=== PATIENT | male | born 1990 | race Caucasian/White ===

== ENCOUNTER 2021-09-13 21:47 | Inpatient (IN) | payer MEDICAID, OTHER ==
[~2021-09-13] VITALS: Ht 172.7 cm; Wt 63.0 kg
--- NOTE | 2021-09-13 21:49 | NUR ---
Pt bib ra from SNF for oxygen desaturation with SaO2 in the 50s. Upon arrival, the pt looked fine, alert, wide awake and speaking with the paramedics. has good color and appearance, no signs of hypoxia, no cyanosis. Pt awake and talking. Initial SaO2 was 83% with the trach cuff deflated. RT reflatted the cuff and pt was at 93%, he also adjusted the vent settings til SaO2 at 100%. Pt aaox3 and able to communate but is practically inaudible. All other vs normal
--- NOTE | 2021-09-13 21:55 | NUR ---
EDMD at bedside to assess pt. 1L NS bolus ordered with EKG and work up.
--- NOTE | 2021-09-13 22:00 | NUR ---
1L NS bolus started Addendum: 09/14/21 at 0556 by [email or web address] first bolus initiated. Addendum: 09/14/21 at 0557 by [email or web address] Via dbl lumen PICC in Lt upper arm.
[2021-09-13] MEDS ORDERED: ACET-2154 GT (22:17)
[2021-09-13] MEDS ORDERED: MAGN400O6 GT (22:17)
[2021-09-13] MEDS ORDERED: ACET-73 GT (22:17)
[2021-09-13] MEDS ORDERED: IPRA4AER IH (22:17)
[2021-09-13] MEDS ORDERED: SENN-18 GT (22:17)
[2021-09-13] MEDS ORDERED: MECL-159 GT (22:17)
[2021-09-13] MEDS ORDERED: METO-295 GT (22:17)
[2021-09-13] MEDS ORDERED: ZOLP10TA2 GT (22:17)
[2021-09-13] MEDS ORDERED: IPRA4AER INH (22:17)
[2021-09-13] MEDS ORDERED: AMIN30LI2 GT (22:17)
[2021-09-13] MEDS ORDERED: CHLO473M3 PO (22:17)
[2021-09-13] MEDS ORDERED: MULT-213 GT (22:17)
[2021-09-13] MEDS ORDERED: PANT40TA2 GT (22:17)
[2021-09-13] MEDS ORDERED: BISA10SU61 RC (22:17)
[2021-09-13] MEDS ORDERED: SIME80TA15 GT (22:17)
[2021-09-13] MEDS ORDERED: MAG30ORA GT (22:17)
[2021-09-13] MEDS ORDERED: TRAZ-257 GT (22:17)
[2021-09-13] MEDS ORDERED: FERR325T28 GT (22:17)
[2021-09-13] MEDS ORDERED: NA P133E RC (22:17)
[2021-09-13] MEDS ORDERED: NORCO GT (22:17)
[2021-09-13] MEDS ORDERED: LORA-259 GT (22:17)
[2021-09-13] MEDS ORDERED: BACL10TA GT (22:17)
[2021-09-13] MEDS ORDERED: IV NORMAL SALINE 1000 ML BAG IV ONE (22:45)
[2021-09-13 23:03] LABS: MEAN CORPUSCULAR HEMOGLOBIN 26.8 uug (23.8-33.4); MEAN CORPUSCULAR VOLUME 83.5 fL (73.0-96.2); PLATELET COUNT (AUTO) 467 K/uL (152-348)
[2021-09-13 23:24] LABS: CARBON DIOXIDE 25 mmol/L (21-32); CHLORIDE 108 mmol/L (98-107); CREATININE 0.3 mg/dL (0.6-1.3); GLUCOSE 106 mg/dL (74-106); POTASSIUM 4.4 mmol/L (3.5-5.1); UREA NITROGEN, BLOOD 9 mg/dL (7-18)
[2021-09-13 23:30] LABS: ALANINE AMINOTRANSFERASE 18 U/L (16-63); ALKALINE PHOSPHATASE 117 U/L (50-136); ASPARTATE AMINOTRANSFERASE 12 U/L (15-37); BILIRUBIN,DIRECT 0.2 mg/dL (0.0-0.2); BILIRUBIN,TOTAL 0.3 mg/dL (0.2-1.0); TOTAL PROTEIN, SERUM 6.2 g/dL (6.4-8.2)
[2021-09-13] MEDS ORDERED: IV NS 1000 ML 1,000 ML IV ONE (23:30)
[2021-09-13] MEDS ORDERED: AZITHROMYCIN IV 500 MG in IV DEXTROSE 5% 250 ML IV ONE (23:30)
[2021-09-13] MEDS ORDERED: VANCOMYCIN 1G/D5W 200 ML PIGGYBACK IV ONE (23:30)
[2021-09-13] MEDS ORDERED: PIPERACILLIN SODIUM/TAZOBACTAM 3.375 G in IV DEXTROSE 5% 50 ML IV ONE (23:30)
[2021-09-13] MEDS ORDERED: VANCOMYCIN 1000 MG VIAL ONE (23:47)
[2021-09-13] MEDS ORDERED: AZITHROMYCIN 500MG/ D5W 250ML IVPB **ER PYXIS ONLY IV ONE (23:48)
[2021-09-13] MEDS ORDERED: PIPERACILLIN/TAZOBACTAM/D5W 50 ML IV ONE (23:49)
[2021-09-13] MEDS ORDERED: MORPHINE SULFATE 4 MG/1 ML DISP.SYRIN ONE (23:59)
[2021-09-14] VITALS (20 sets, daily range): BP systolic 94–131; BP diastolic 46–77
[2021-09-14] MEDS ORDERED: MORPHINE SULFATE 4 MG/1 ML DISP.SYRIN IV ONE
[2021-09-14 01:30] LABS: ABG BASE EXCESS -2.2 mmol/L; ABG HCO3 23.3 mmol/L; ABG PCO2 43.1 mmHg (35.0-45.0); ABG PH 7.351 (7.350-7.450); ABG PO2 53.9 mmHg (75.0-100.0); ABG SITE LEFT FEMORAL; ABG TOTAL HEMOGLOBIN 8.7 G/dL (13.5-18.0); COHb 0.3 % (0.5-1.5); MetHb 0.4 % (0.0-1.5); O2Hb 84.5 % (94.0-97.0); VENT MODE VENT - A/C; VT, ABG 500 mL
[2021-09-14] MEDS ORDERED: NOREPINEPHRINE BITARTRATE 8 MG in IV NORMAL SALINE 242 ML IV PRN (01:45)
[2021-09-14 02:17] LABS: *BILIRUBIN,URIN NEGATIVE (NEGATIVE); *BLOOD, URINE 1+ (NEGATIVE); *COLOR,URINE YELLOW (YELLOW); *KETONES,URINE 2+ (NEGATIVE); *UROBILINOGEN,URINE 0.2 E.U./dl (NORMAL); LEUKOCYTE ESTERASE ,URINE 1+ (NEGATIVE); NITRITE, URINE NEGATIVE (NEGATIVE); UGLUCOSE NEGATIVE (NEGATIVE)
[2021-09-14 02:23] LABS: *CLARITY,URINE HAZY (CLEAR)
--- NOTE | 2021-09-14 02:25 | NUR ---
Just placed a call to [facility] for panel call, Radha Green alumni relations officer and will be calling back within 20 min. If no call received, will call back.
--- NOTE | 2021-09-14 02:27 | NUR ---
Radha Green just called back and is currently consulting with EDMD>
[2021-09-14 02:29] LABS: BACTERIA,URINE MANY /HPF (NONE SEEN); SQUAMOUS EPITHELIAL CELL,UR FEW /HPF (NONE SEEN); WBC,URINE 20-50 /HPF (0-3)
[2021-09-14] MEDS ORDERED: IV NS 1000 ML 1,000 ML IV ONE (02:30)
[2021-09-14] MEDS ORDERED: MORPHINE SULFATE 2 MG/1 ML DISP.SYRIN IV ONE (02:30)
[2021-09-14] MEDS ORDERED: MORPHINE SULFATE 2 MG/1 ML DISP.SYRIN ONE (02:45)
[2021-09-14] MEDS ORDERED: MAG HYDROX/AL HYDROX/SIMETH 30 ML LIQUID UDC GT PRN (03:00)
[2021-09-14] MEDS ORDERED: HYDROCORTISONE SOD SUCCINATE 100 MG/2 ML VIAL IV ONE (03:00)
[2021-09-14] MEDS ORDERED: MAGNESIUM HYDROXIDE 30 ML LIQUID UDC GT PRN (03:00)
[2021-09-14] MEDS ORDERED: ACETAMINOPHEN ES 500 MG TABLET- SA PATIENTS-PAIN ONLY GT PRN (03:00)
[2021-09-14] MEDS ORDERED: BISACODYL 10 MG SUPP.RECT RC PRN (03:00)
--- NOTE | 2021-09-14 03:00 | NUR ---
Report called to CCU CINDY Hurtado. thorough report given using SBAR method.
--- NOTE | 2021-09-14 03:05 | NUR ---
PT SEEN IN ER # 1 BY RT , PT BEING AMBU BAGGED BY RESCUE , PT WITH PORTEX TRACH , AND ALERT AND UNDERSTANDS VERBAL COMMANDS, RT PLACING PT ON TOUSSAINT VENT, WITH NO ORDERS, LACED ON A/C 20, VT 500ML, PEEP 5, FIO2 100%, THEN TELLING DR RAINEY, ORDERS AGREED, F/B WITH C/S SPUTUM CULTURE DONE, AFTER ABG, WITH LOW PO2, RT ASKING DR RAINEY, INCREASE PEEP TO 8, TO IMPROVE OXYGENATION, DOC AGREED , NEED TO WRITE ORDER , PT IS VERY ALERT ,SUCTION RNHodan FENG TALENT DEVELOPMENT ANALYST Addendum: 09/14/21 at 0313 by DRE FENG RT Amended: Links added.
--- NOTE | 2021-09-14 03:45 | NUR ---
Pt transported to CCU2 accompanied by RT on the BVM. transfered to bed and helped get pt set up.
--- NOTE | 2021-09-14 04:06 | NUR ---
PATIENT brought to ccu # 2 @ 04:04 with rt assist with luis montgomery, then placed on zoya NOBLEP Addendum: 09/14/21 at 0407 by DRE FENG RT Amended: Links added.
[2021-09-14] MEDS ORDERED: NORMAL SALINE IV PRN (04:15)
[2021-09-14] MEDS ORDERED: PHENYLEPHRINE IV PRN (04:15)
--- NOTE | 2021-09-14 04:15 | NUR ---
patient;s bilateral upper extremities contracted , lower extremities are flaccid , received belongings of cell phone and clinical pharmacologist, and patient own portable pulse oximetry
--- NOTE | 2021-09-14 04:15 | NUR ---
received report from antonette , patient is awake , oriented x 3 , vent ac 20 tv 500 p 8 , fio2 100 % , gt flushed patent ,but [place] with scant drainage , allred from long term , left picc line from long term , sinus tachy , sbp 122/ 62 , 98 rr 21,
[2021-09-14] MEDS: LORAZEPAM 1 MG TABLET GT PRN ×3 (04:33→22:18)
--- NOTE | 2021-09-14 04:59 | NUR ---
alejandro estes is here to see patient
[2021-09-14] MEDS: ENOXAPARIN SODIUM 40 MG/0.4 ML DISP.SYRIN SQ SCH (05:28)
[2021-09-14] MEDS ORDERED: PIPERACILLIN SODIUM/TAZOBACTAM 3.375 G in IV DEXTROSE 5% 50 ML IV SCH ×4 (06:00)
--- NOTE | 2021-09-14 06:00 | NUR ---
NATHALIA MORRIS TECH NOTIFIED OF DUPLEX LE ORDER TODAY
--- NOTE | 2021-09-14 06:49 | NUR ---
emergency contact brother ,devora [phone] , brother pat [phone]
--- NOTE | 2021-09-14 06:54 | NUR ---
patient is sleeping , arousable to name and touch , same vent settings , gt clamped , picc line xray done and cxr done , allred intact , contracted with abnormal flexion on bue, flaccid ascencion ble sinus tachy , 112
[2021-09-14] MEDS: PIPERACILLIN SODIUM/TAZOBACTAM 3.375 G in IV DEXTROSE 5% 100 ML IV SCH ×3 (07:50→22:04)
[2021-09-14] MEDS: SIMETHICONE 80 MG TAB.CHEW GT SCH (08:16)
[2021-09-14] MEDS: BACLOFEN 10 MG TABLET GT SCH ×3 (08:16→17:03)
[2021-09-14] MEDS: MULTIVITAMINS,THERAPEUTIC TABLET GT SCH (08:16)
[2021-09-14] MEDS: REMEDY ESSENTIAL ZINC PASTE 113 GM TOP SCH ×2 (08:16→20:30)
[2021-09-14] MEDS: PROTEIN SUPPLEMENT (PROSTAT) 30 ML LIQUID PO SCH (08:17)
[2021-09-14] MEDS: CHLORHEXIDINE GLUCONATE 15 ML MOUTHWASH MM SCH ×2 (08:30→17:03)
[2021-09-14] MEDS: PANTOPRAZOLE ORAL SUSPENSION 40 MG SUSPDR.PKT GT SCH (08:40)
[2021-09-14] MEDS ORDERED: Medication Not On Formulary EA (Amino Acids/Protein Hydrolys (Pro-Stat Liquid) 30 ML) GT SCH (09:00)
[2021-09-14] MEDS ORDERED: MECLIZINE HCL 25 MG TABLET GT SCH (09:00)
[2021-09-14] MEDS ORDERED: ACETAMINOPHEN 325 MG TABLET-SA PATIENTS-PAIN ONLY GT SCH (09:00)
[2021-09-14] MEDS ORDERED: PANTOPRAZOLE SODIUM 40 MG TABLET.DR PO SCH (09:00)
[2021-09-14] MEDS ORDERED: ACETAMINOPHEN 325 MG TABLET PO SCH (09:00)
[2021-09-14] MEDS: MORPHINE SULFATE 2 MG/1 ML DISP.SYRIN IV PRN ×2 (11:19→18:43)
[2021-09-14] MEDS: VANCOMYCIN IV 1,000 MG in IV DEXTROSE 5% 250 ML IV SCH ×2 (13:14→22:04)
[2021-09-14] MEDS ORDERED: ACET325T53 PO (14:08)
[2021-09-14] MEDS ORDERED: MECLIZINE HCL 25 MG TABLET GT PRN (14:15)
[2021-09-14] MEDS ORDERED: IPRATROPIUM BROMIDE 0.5 MG/2.5 ML NEBU NEB PRN (14:45)
[2021-09-14] MEDS ORDERED: ALBUTEROL SULFATE 2.5 MG/ 0.5 ML NEBU NEB PRN (14:45)
[2021-09-14] MEDS ORDERED: HYDR-3972 PO (14:55)
[2021-09-14] MEDS ORDERED: PROTONIX GT (15:04)
[2021-09-14] MEDS: HYDROCODONE/APAP 5-325MG TABLET GT PRN ×2 (15:53→20:55)
[2021-09-14] MEDS: FERROUS SULFATE 325 MG TABEC PO SCH (17:30)
--- NOTE | 2021-09-14 19:15 | NUR ---
received patient awake , oriented x 4 , gt clamped , for meds suprapubis catheter draining , bilateral arms contracted , bilaterallegs flaccid , midline intact , no fever , sinus tachycardia
--- NOTE | 2021-09-14 19:15 | NUR ---
abdomen distended but soft
[2021-09-14] MEDS: ACETAMINOPHEN 325 MG TABLET PO PRN (19:50)
[2021-09-14] MEDS: TRAZODONE 100 MG TABLET GT SCH (20:29)
[2021-09-14] MEDS: ZOLPIDEM 5 MG TABLET GT PRN (20:29)
[2021-09-14] MEDS: SENNOSIDES 1 TABLET GT SCH (20:33)
[2021-09-14] MEDS: ALBUTEROL SULFATE 2.5 MG/ 0.5 ML NEBU NEB SCH (20:55)
[2021-09-14] MEDS: IPRATROPIUM BROMIDE 0.5 MG/2.5 ML NEBU NEB SCH (20:55)
--- NOTE | 2021-09-14 21:00 | NUR ---
celestina is here at bedside to see patient
[2021-09-15] VITALS (24 sets, daily range): BP systolic 97–127; BP diastolic 48–73
[2021-09-15] MEDS: MORPHINE SULFATE 2 MG/1 ML DISP.SYRIN IV PRN ×4 (00:34→22:56)
[2021-09-15] MEDS: ALBUTEROL SULFATE 2.5 MG/ 0.5 ML NEBU NEB SCH ×4 (01:08→19:15)
[2021-09-15] MEDS: IPRATROPIUM BROMIDE 0.5 MG/2.5 ML NEBU NEB SCH ×4 (01:08→19:15)
--- NOTE | 2021-09-15 01:12 | NUR ---
PATIENT ON CONT TOUSSAINT VENT WITH PORTEX # [address] AND SECURED, WITH VENT SETTINGS, A/C 20 500ML, 50%,PEEP 8. PT AWAKE AND IS ALERT AND UNDERSTANDS VERBAL COMMANDS, SUCTIONED LIGHT PALE YELL TINGE SECRETIONS, GOD COUGH REFLEX, WITH NEB INLINE , CHANGE HME , ALL VENT ALARMS GOOD, NO VENT CHANGES MADE .Petrona NOBLEP Addendum: 09/15/21 at 0115 by DRE FENG RT Amended: Links added.
[2021-09-15] MEDS: HYDROCODONE/APAP 5-325MG TABLET GT PRN ×4 (02:54→20:20)
--- NOTE | 2021-09-15 04:00 | NUR ---
left midline site , the arm is starting to swell , particularly the elbow area, , no redness , no pain
[2021-09-15] MEDS: ACETAMINOPHEN 325 MG TABLET PO PRN ×3 (05:13→18:33)
[2021-09-15] MEDS: PIPERACILLIN SODIUM/TAZOBACTAM 3.375 G in IV DEXTROSE 5% 100 ML IV SCH (05:18)
[2021-09-15] MEDS: VANCOMYCIN IV 1,000 MG in IV DEXTROSE 5% 250 ML IV SCH ×2 (05:18→23:41)
[2021-09-15 05:57] LABS: MEAN CORPUSCULAR HEMOGLOBIN 26.5 uug (23.8-33.4); MEAN CORPUSCULAR VOLUME 82.7 fL (73.0-96.2); PLATELET COUNT (AUTO) 410 K/uL (152-348)
--- NOTE | 2021-09-15 06:00 | NUR ---
talked to manager technical training regarding duplex study for left arm for dvt
[2021-09-15 06:05] LABS: ALANINE AMINOTRANSFERASE 14 U/L (16-63); ALKALINE PHOSPHATASE 90 U/L (50-136); ASPARTATE AMINOTRANSFERASE 13 U/L (15-37); BILIRUBIN,TOTAL 0.5 mg/dL (0.2-1.0); CARBON DIOXIDE 22 mmol/L (21-32); CHLORIDE 104 mmol/L (98-107); CREATININE 0.4 mg/dL (0.6-1.3); GLUCOSE 95 mg/dL (74-106); MAGNESIUM 1.5 mg/dL (1.8-2.4); TOTAL PROTEIN, SERUM 5.4 g/dL (6.4-8.2); UREA NITROGEN, BLOOD 7 mg/dL (7-18)
--- NOTE | 2021-09-15 06:30 | NUR ---
awake oriented x 4 , gt clamped for meds only , with , site is cleaned and covered with dressing , redness on the site noted , , vent setting the same , suprapubic catherter intact , trach care rendered , incontinent of bowel , with soft stool , cxr and abd xr done , left midline arm is swollen , duplex study for dvt ordered , pain medications given , SR at this time at 90 , sbp 102/52 , tylenol given for low grade temp
[2021-09-15] MEDS ORDERED: POTASSIUM CHLORIDE 50 ML IV SCH (07:30)
[2021-09-15] MEDS ORDERED: POTASSIUM CHLORIDE 20 MEQ POWDER PACKET GT ONE (07:30)
[2021-09-15] MEDS ORDERED: MAGNESIUM SULFATE/D5W 100 ML IV SCH (07:30)
[2021-09-15 07:52] LABS: ABG BASE EXCESS -2.4 mmol/L; ABG HCO3 21.3 mmol/L; ABG PCO2 31.8 mmHg (35.0-45.0); ABG PH 7.443 (7.350-7.450); ABG PO2 165.8 mmHg (75.0-100.0); ABG SITE LEFT RADIAL; ABG TOTAL HEMOGLOBIN 8.2 G/dL (13.5-18.0); COHb 0.4 % (0.5-1.5); MetHb 0.4 % (0.0-1.5); O2Hb 98.2 % (94.0-97.0); VENT MODE VENT - A/C; VT, ABG 500 mL
[2021-09-15] MEDS: PANTOPRAZOLE ORAL SUSPENSION 40 MG SUSPDR.PKT GT SCH (08:26)
[2021-09-15] MEDS: BACLOFEN 10 MG TABLET GT SCH ×3 (08:27→17:07)
[2021-09-15] MEDS: REMEDY ESSENTIAL ZINC PASTE 113 GM TOP SCH ×2 (09:00→20:19)
[2021-09-15] MEDS: CHLORHEXIDINE GLUCONATE 15 ML MOUTHWASH MM SCH ×2 (09:00→17:08)
[2021-09-15] MEDS: LORAZEPAM 1 MG TABLET GT PRN ×2 (09:40→17:06)
[2021-09-15] MEDS: PROTEIN SUPPLEMENT (PROSTAT) 30 ML LIQUID PO SCH (10:38)
[2021-09-15] MEDS: MULTIVITAMINS,THERAPEUTIC TABLET GT SCH (10:43)
[2021-09-15] MEDS: ENOXAPARIN SODIUM 40 MG/0.4 ML DISP.SYRIN SQ SCH (10:46)
[2021-09-15] MEDS: FERROUS SULFATE 325 MG TABEC PO SCH ×3 (13:00→17:08)
--- NOTE | 2021-09-15 13:00 | NUR ---
WOUND CARE CONSULT: PT HAVING PROCEDURE AT THIS TIME. REVIEWED CHART, NURSING DOCUMENTATION AND PHOTOS WHICH INDICATE RT HEEL WOUND, PRESENT ON ADMISSION. DR TEAGUE NOTIFIED OF DPM CONSULT REQUEST. RECOMMENDATIONS MADE FOR SKIN PROTECTION. DISCUSSED WITH NURSING STAFF. PT IS ON FIRST STEP PARTHA COLLINS. IN AGREEMENT WITH PLAN OF CARE.
[2021-09-15] MEDS ORDERED: PIPERACILLIN SODIUM/TAZOBACTAM 4.5 G in IV DEXTROSE 5% 50 ML IV SCH (14:00)
[2021-09-15] MEDS: MAGNESIUM SULFATE/D5W 100 ML IV SCH ×3 (14:14→16:18)
[2021-09-15] MEDS: POTASSIUM CHLORIDE 50 ML IV SCH ×4 (14:15→16:19)
[2021-09-15] MEDS: JEVITY 1.2 1000 ML LIQUID GT PRN (15:26)
--- NOTE | 2021-09-15 15:35 | NUR ---
Pt received on cont kenny vent with given settigns of AC, RR 20, Vt 500, PEEP + 8, 50% Fio2. Fio2 decreased to 30% post abg results. Alarms on and audible. Trach tube in place and secured. Ventilator plugged in red outlets Will continue to monitor.
[2021-09-15] MEDS: PIPERACILLIN SODIUM/TAZOBACTAM 3.375 G in IV DEXTROSE 5% 50 ML IV SCH ×2 (15:38→20:18)
[2021-09-15] MEDS: SIMETHICONE 80 MG TAB.CHEW GT SCH (16:17)
--- NOTE | 2021-09-15 20:00 | NUR ---
Received patient AA, able to make needs known by lip talking. With trache to vent settings: AC=20, JD=378 ml, FIO2=30% and PEEP= 5 cm. O2 saturations above 94%. Requesting for L[place], c/o back and generalized pains. [id number]. Cooling measures initiated, bath given. Had a small liquid brown BM. Turned and repositioned. Largo given via patent GT. HOB elevated above 30 degrees.
[2021-09-15] MEDS: TRAZODONE 100 MG TABLET GT SCH (20:16)
[2021-09-15] MEDS: ZOLPIDEM 5 MG TABLET GT PRN (20:17)
[2021-09-15] MEDS: SENNOSIDES 1 TABLET GT SCH (21:00)
--- NOTE | 2021-09-15 21:30 | NUR ---
Complaining of abdominal discomfort. Refusing GT feedings. Abdomen distended, soft with hypoactive bowel sounds. Feedings held. No residual. Will notify .
--- NOTE | 2021-09-15 22:30 | NUR ---
Spoke to Lisa MENDIETA re: patient's nausea, abdominal distension and fever. Order received. No cultures for now as per PENOLOGY TEACHER. Addendum: 09/16/21 at 0634 by MAYCO CAMILO RN Amended: Links added.
[2021-09-15] MEDS ORDERED: ONDANSETRON 4 MG/2 ML VIAL IV PRN (22:45)
[2021-09-16] VITALS (26 sets, daily range): BP systolic 92–123; BP diastolic 44–73
[2021-09-16] MEDS: LORAZEPAM 1 MG TABLET GT PRN ×3 (00:42→23:34)
[2021-09-16] MEDS: IPRATROPIUM BROMIDE 0.5 MG/2.5 ML NEBU NEB SCH ×4 (01:02→20:02)
[2021-09-16] MEDS: ALBUTEROL SULFATE 2.5 MG/ 0.5 ML NEBU NEB SCH ×4 (01:03→20:03)
[2021-09-16] MEDS: ACETAMINOPHEN 325 MG TABLET PO PRN ×2 (01:10→06:04)
[2021-09-16] MEDS: PIPERACILLIN SODIUM/TAZOBACTAM 3.375 G in IV DEXTROSE 5% 50 ML IV SCH ×4 (03:40→20:39)
[2021-09-16] MEDS: MORPHINE SULFATE 2 MG/1 ML DISP.SYRIN IV PRN ×4 (04:18→21:38)
[2021-09-16] MEDS: IV NORMAL SALINE 250 ML IV PRN (04:24)
[2021-09-16] MEDS: HYDROCODONE/APAP 5-325MG TABLET GT PRN ×4 (05:11→23:34)
[2021-09-16 06:28] LABS: CREATININE 0.9 mg/dL (0.6-1.3); MAGNESIUM 2.8 mg/dL (1.8-2.4); PHOSPHOROUS 3.4 mg/dL (2.5-4.9); POTASSIUM 4.2 mmol/L (3.5-5.1)
[2021-09-16 06:36] LABS: HEMATOCRIT 25.6 % (36.7-47.1); MEAN CORPUSCULAR HEMOGLOBIN 26.6 uug (23.8-33.4); MEAN CORPUSCULAR VOLUME 83.3 fL (73.0-96.2); PLATELET COUNT (AUTO) 362 K/uL (152-348)
--- NOTE | 2021-09-16 06:45 | NUR ---
Had another liquid brown stools. Flexi seal inserted without difficulty. Abdomen still distended, soft. Remains on same vent settings, O2 sat above 95%. patient monitor: ST rate 120's-130's. Temp=98.1.
--- NOTE | 2021-09-16 08:29 | NUR ---
Patient seen by Dr. Rivera. plan of care discussed. KUB with gastrograftin ordered and PO meals instead of Gtube.
[2021-09-16] MEDS: PANTOPRAZOLE ORAL SUSPENSION 40 MG SUSPDR.PKT GT SCH (08:40)
[2021-09-16] MEDS: BACLOFEN 10 MG TABLET GT SCH ×3 (08:40→17:38)
[2021-09-16] MEDS: MULTIVITAMINS,THERAPEUTIC TABLET GT SCH (08:40)
[2021-09-16] MEDS: PROTEIN SUPPLEMENT (PROSTAT) 30 ML LIQUID PO SCH (08:42)
[2021-09-16] MEDS ORDERED: ACETAMINOPHEN 650 MG SUPP.RECT RC PRN (08:45)
[2021-09-16] MEDS ORDERED: DIATR MEGLU/DIATRIZOATE SODIUM 30 ML BOTTLE ONE (08:57)
[2021-09-16] MEDS: SIMETHICONE 80 MG TAB.CHEW GT SCH (09:00)
[2021-09-16] MEDS: ENOXAPARIN SODIUM 40 MG/0.4 ML DISP.SYRIN SQ SCH (09:00)
[2021-09-16] MEDS: CHLORHEXIDINE GLUCONATE 15 ML MOUTHWASH MM SCH ×2 (09:01→17:38)
[2021-09-16] MEDS: FERROUS SULFATE 325 MG TABEC PO SCH (09:01)
[2021-09-16] MEDS: REMEDY ESSENTIAL ZINC PASTE 113 GM TOP SCH ×2 (09:25→20:39)
[2021-09-16] MEDS: VANCOMYCIN IV 1,000 MG in IV DEXTROSE 5% 250 ML IV SCH ×2 (12:29→23:52)
[2021-09-16] MEDS: FERROUS SULFATE 300 MG/5 ML LIQUID UDC GT SCH ×2 (12:32→17:38)
--- NOTE | 2021-09-16 19:17 | NUR ---
Patient had oral meal today but refusing tube feeding at this time. Patient has frequently been asking for pain medication and ativan requests. patient still has diarrhea and a flexiseal with output of 100cc/ suprapubic catheter output of 800 cc.
--- NOTE | 2021-09-16 19:30 | NUR ---
Received patient awake, alert, with trache to mechanical ventilator and with Passy Vulcan valve, so able to verbalized needs. NAD noted. Quadriplegic. O2 saturations above 94% on FIO2=30%. VS stable. Abdomen soft, distended. GT patent, clamped. Suprapubic cath with good amounts of yellow urine. Assessment completed. Turned and repositioned. Addendum: 09/17/21 at 0034 by MAYCO CAMILO RN Amended: Links added. Addendum: 09/17/21 at 0038 by MAYCO CAMILO RN Amended: Links added.
[2021-09-16] MEDS: TRAZODONE 100 MG TABLET GT SCH (20:40)
--- NOTE | 2021-09-16 20:40 | NUR ---
Lachelle Leal. Meds given via GT. GT site dressing changed, redness noted, no usual drainage around site. Supra pubic catheter dressing changed as well. Site clean, dry. Patient very appreciative of care. Addendum: 09/17/21 at 0038 by MAYCO CAMILO RN Amended: Links added.
[2021-09-16] MEDS: ZOLPIDEM 5 MG TABLET GT PRN (20:41)
[2021-09-16] MEDS: SENNOSIDES 1 TABLET GT SCH (21:00)
[2021-09-17] VITALS (19 sets, daily range): BP systolic 89–150; BP diastolic 44–88
[2021-09-17] MEDS: IV NORMAL SALINE 250 ML IV PRN (00:51)
[2021-09-17] MEDS: ALBUTEROL SULFATE 2.5 MG/ 0.5 ML NEBU NEB SCH ×4 (01:04→19:33)
[2021-09-17] MEDS: IPRATROPIUM BROMIDE 0.5 MG/2.5 ML NEBU NEB SCH ×4 (01:04→19:33)
[2021-09-17] MEDS: PIPERACILLIN SODIUM/TAZOBACTAM 3.375 G in IV DEXTROSE 5% 50 ML IV SCH ×4 (02:29→20:48)
[2021-09-17 06:16] LABS: MAGNESIUM 2.5 mg/dL (1.8-2.4); PHOSPHOROUS 3.8 mg/dL (2.5-4.9)
[2021-09-17 06:39] LABS: HEMATOCRIT 22.2 % (36.7-47.1); MEAN CORPUSCULAR HEMOGLOBIN 26.6 uug (23.8-33.4); MEAN CORPUSCULAR VOLUME 82.8 fL (73.0-96.2); PLATELET COUNT (AUTO) 267 K/uL (152-348)
--- NOTE | 2021-09-17 06:50 | NUR ---
Slept well after Industry and Ativan. O2 saturations above 95%. inside tester: SB-SR.
[2021-09-17 07:26] LABS: CREATININE 1.2 mg/dL (0.6-1.3)
[2021-09-17] MEDS: FERROUS SULFATE 300 MG/5 ML LIQUID UDC GT SCH ×3 (08:41→16:24)
[2021-09-17] MEDS: PANTOPRAZOLE ORAL SUSPENSION 40 MG SUSPDR.PKT GT SCH (08:41)
[2021-09-17] MEDS: PROTEIN SUPPLEMENT (PROSTAT) 30 ML LIQUID PO SCH (08:41)
[2021-09-17] MEDS: BACLOFEN 10 MG TABLET GT SCH ×3 (08:41→16:24)
[2021-09-17] MEDS: SIMETHICONE 80 MG TAB.CHEW GT SCH (08:42)
[2021-09-17] MEDS: MULTIVITAMINS,THERAPEUTIC TABLET GT SCH (08:42)
[2021-09-17] MEDS: CHLORHEXIDINE GLUCONATE 15 ML MOUTHWASH MM SCH ×2 (08:43→16:25)
[2021-09-17] MEDS: REMEDY ESSENTIAL ZINC PASTE 113 GM TOP SCH ×2 (08:44→20:49)
[2021-09-17] MEDS: ENOXAPARIN SODIUM 40 MG/0.4 ML DISP.SYRIN SQ SCH (08:45)
[2021-09-17] MEDS: HYDROCODONE/APAP 5-325MG TABLET GT PRN ×2 (08:49→20:48)
[2021-09-17] MEDS: VANCOMYCIN IV 1,000 MG in IV DEXTROSE 5% 250 ML IV SCH (11:55)
[2021-09-17] MEDS: METOCLOPRAMIDE HCL 5 MG TABLET PO SCH ×2 (13:34→16:24)
[2021-09-17] MEDS: MORPHINE SULFATE 2 MG/1 ML DISP.SYRIN IV PRN (14:19)
--- NOTE | 2021-09-17 14:30 | NUR ---
Patient refused meal at noon and was too lethargic to eat in the am. Tube feeding started.
--- NOTE | 2021-09-17 15:55 | NUR ---
Patient transferred to telemetry unit. Report given to Gabriela. Blood Transfused without incident.
--- NOTE | 2021-09-17 16:03 | NUR ---
RECEIVED FROM CCU VIA BED IN STABLE CONDITION
--- NOTE | 2021-09-17 17:32 | NUR ---
PT BROTHER IS AT BED SIDE , TALKING TO PT, BROTHER IS SAYING PT IS CONFUSED AND NOT RECOGNIZING HIM .PT VS ARE STABLE AND MD NOTIFIED NEW ORDERS RECEIVED NOTED AND CARRIED OUT.
--- NOTE | 2021-09-17 19:30 | NUR ---
Received pt awake .. Pt in no acute distress. Iv intact. Pt on mechanical vent. Pt in sinus rhythm . Pt tolerating g tube feeding. Pt have draining allred catheter and rectal tube. Safety and comfort provided. Will continue to monitor.
[2021-09-17 19:58] LABS: *BILIRUBIN,URIN NEGATIVE (NEGATIVE); *BLOOD, URINE 3+ (NEGATIVE); *COLOR,URINE YELLOW (YELLOW); *KETONES,URINE NEGATIVE (NEGATIVE); *UROBILINOGEN,URINE 0.2 E.U./dl (NORMAL); LEUKOCYTE ESTERASE ,URINE 2+ (NEGATIVE); NITRITE, URINE NEGATIVE (NEGATIVE); UGLUCOSE NEGATIVE (NEGATIVE)
[2021-09-17 19:59] LABS: *CLARITY,URINE HAZY (CLEAR)
[2021-09-17 20:09] LABS: BACTERIA,URINE NONE SEEN /HPF (NONE SEEN); RBC,URINE TNTC /HPF (0-3); SQUAMOUS EPITHELIAL CELL,UR FEW /HPF (NONE SEEN)
[2021-09-17 20:14] LABS: *CREATININE,URINE < 13.0 mg/dL (30-125); *URINE TOTAL PROTEIN RANDOM 14.8 mg/dL (<150/24HR)
[2021-09-17 20:35] LABS: YEAST,URINE MODERATE /HPF (NONE SEEN)
[2021-09-17] MEDS: TRAZODONE 100 MG TABLET GT SCH (20:48)
[2021-09-17] MEDS: SENNOSIDES 1 TABLET GT SCH (20:48)
--- NOTE | 2021-09-17 21:30 | NUR ---
Gina (pt brother ) called back for an update regarding his brother condition specifically mental state. Told Gina that I gave pain medication at 2047h Norco5-325mg prn because pt mouthed he wants pain medication as pt have facial grimace. Pt sleeping when Gina called so he didn't speak with him. Pt in no acute distress. Will continue to monitor.
[2021-09-18 00:31] VITALS: BP 123/69
[2021-09-18] MEDS: IPRATROPIUM BROMIDE 0.5 MG/2.5 ML NEBU NEB SCH ×4 (00:35→20:15)
[2021-09-18] MEDS: ALBUTEROL SULFATE 2.5 MG/ 0.5 ML NEBU NEB SCH ×4 (00:35→20:16)
[2021-09-18] MEDS: ACETAMINOPHEN 325 MG TABLET PO PRN ×2 (01:06→23:50)
[2021-09-18] MEDS: ZOLPIDEM 5 MG TABLET GT PRN (01:06)
[2021-09-18] MEDS: PIPERACILLIN SODIUM/TAZOBACTAM 3.375 G in IV DEXTROSE 5% 50 ML IV SCH ×2 (02:36→08:58)
[2021-09-18 04:46] VITALS: BP 110/61
[2021-09-18 06:20] LABS: HEMATOCRIT 29.1 % (36.7-47.1); MEAN CORPUSCULAR HEMOGLOBIN 27.5 uug (23.8-33.4); MEAN CORPUSCULAR VOLUME 82.8 fL (73.0-96.2); PLATELET COUNT (AUTO) 349 K/uL (152-348)
--- NOTE | 2021-09-18 06:39 | NUR ---
Pt in no acute respiratory distress. Iv intact. Pt on mechanical vent. Pt turned and repositioned. Suction prn needed. Dressing changed. Prescribed medication given and pt tolerated it well. Pt tolerating gtube feeding. Villavicencio and rectal tube intact and draining well.. Safety and comfort provided. Will endorse to incoming nurse for continuity of care.
[2021-09-18 06:45] LABS: BILIRUBIN,TOTAL 0.9 mg/dL (0.2-1.0); CREATININE 1.2 mg/dL (0.6-1.3); MAGNESIUM 2.4 mg/dL (1.8-2.4); PHOSPHOROUS 3.1 mg/dL (2.5-4.9); POTASSIUM 3.9 mmol/L (3.5-5.1); TOTAL PROTEIN, SERUM 5.4 g/dL (6.4-8.2)
--- NOTE | 2021-09-18 08:00 | NUR ---
DR Rivera here to see patient. Aware of abd distention, foot drop noted, Edema noted on LE's +2. Pt on vent as ordered saturating 97%. Pt responds well with PSYCHIATRIC REGISTERED NURSE and talks in cymro and responds by nodding YES or shaking head for NO and pt able to comprehend. Bowel sounds present x 4. Villavicencio cath and rectal tube in place and draining properly. Call light is within reach.
--- NOTE | 2021-09-18 08:45 | NUR ---
Microphone Boom Operator kinyarwanda nurse used to inform pt that we are trying to limit the use of any narcotic per dr Watts instructions. Pt agreeable with plan (nodding head). Pt denies any c/o pain. RT here to do tracheostomy care. Bed alarm on. fall and aspiration precaution implemented.
[2021-09-18] MEDS: BACLOFEN 10 MG TABLET GT SCH ×3 (08:50→16:41)
[2021-09-18] MEDS: MULTIVITAMINS,THERAPEUTIC TABLET GT SCH (08:50)
[2021-09-18] MEDS: SIMETHICONE 80 MG TAB.CHEW GT SCH (08:50)
[2021-09-18] MEDS: PANTOPRAZOLE ORAL SUSPENSION 40 MG SUSPDR.PKT GT SCH (08:50)
[2021-09-18] MEDS: METOCLOPRAMIDE HCL 5 MG TABLET PO SCH ×3 (08:50→16:41)
[2021-09-18] MEDS: FERROUS SULFATE 300 MG/5 ML LIQUID UDC GT SCH ×3 (08:53→16:41)
[2021-09-18] MEDS: ENOXAPARIN SODIUM 40 MG/0.4 ML DISP.SYRIN SQ SCH (08:53)
[2021-09-18] MEDS: REMEDY ESSENTIAL ZINC PASTE 113 GM TOP SCH ×2 (08:53→21:14)
[2021-09-18] MEDS: PROTEIN SUPPLEMENT (PROSTAT) 30 ML LIQUID PO SCH (08:58)
[2021-09-18] MEDS: CHLORHEXIDINE GLUCONATE 15 ML MOUTHWASH MM SCH ×2 (08:58→16:41)
--- NOTE | 2021-09-18 10:30 | NUR ---
Spoke with RD notified that pt has very poor appetite when being fed soft diet orally. Pt had poor intake for breakfast. Asking for RD to adjust the rate/frequency of the Tube feeding to pt's needs. RD to evaluate case.
[2021-09-18 12:00] VITALS: BP 153/78
[2021-09-18] MEDS: CEFTAZIDIME 2 G in IV DEXTROSE 5% 100 ML IV SCH ×2 (15:00→21:14)
[2021-09-18 16:15] VITALS: BP 151/92
--- NOTE | 2021-09-18 18:31 | NUR ---
PT verbalized "NO PAIN" and shaking his head. No residual noted pt tolerating feeding.
--- NOTE | 2021-09-18 19:32 | NUR ---
Pt verbalized that his left shoulder is hurting. Repositioned pt for comfort. Pt is in no acute distress.
--- NOTE | 2021-09-18 19:35 | NUR ---
PATIENT ASLEEP BUT AROUSABLE, UNCLE AT BED SIDE, NO SOB NO CHEST PAIN, ON VENT ORDERED, SAT WNL, NO COMPLAIN OF PAIN AT THIS TIME. UNCLE CONCERN THAT THE PATIENT TOO DROWSY OR SLEEPY, EXPLAIN TO FAMILY THAT MD AWARE, AND WILL CONTINUE TO OBSERVED. TELE MONITOR SINUS TACHY 111, AFEBRILE, CONT TO MONITOR.
[2021-09-18 20:00] VITALS: BP 128/73
[2021-09-18] MEDS: SENNOSIDES 1 TABLET GT SCH (21:14)
[2021-09-18] MEDS: TRAZODONE 100 MG TABLET GT SCH (21:14)
--- NOTE | 2021-09-18 23:50 | NUR ---
PATIENT AWAKE, SAT WNL, MAKING FACIAL GRIMACY, AND MAKING VOCAL NOISES, ASKED IF HE'S IN PAIN, ANSWER IS YES, GIVEN TYLENOL 650MG VIA GT ORDERED, PATIENT MAKING GESTURE THAT HE WANTED MORE STRONGER THAN TYLENOL, EXPLAINED TO PATIENT THAT MD WANTED TO HOLD NARCOTIC MEDICATIONS FOR PAIN AT THIS TIME DUE CAUSING PATIENT TOO DROWSY/SLEEP AND FAMILY CONCERN. PATIENT SHAKES HIS HEAD, AND DISAGREEING WHAT MD ORDER. PATIENT IS CLEAN AND REPOSITION, KEPT COMFORTABLE MUCH POSSIBLE, CONT TO MONITOR.
[2021-09-19] VITALS: BP 139/85
--- NOTE | 2021-09-19 | NUR ---
PATIENT HAS EPISODE OF ANXIETY, MAKES CLICKING SOUND FROM HIS MOUTH, ASKED IF HE'S IN PAIN, ANSWER NO, PATIENT AWAKE AND WANTED TO DRINK WATER AT THIS TIME, EXPLAINED TO HIM THRU LINK CUTTER THAT THERE NO ORDER FOR HIM TO DRINK WATER, CAUSE HE'S ON VENT, AND HE'S AT RISK FOR ASPIRATION, RENDERED GOOD ORAL CARE, GIVEN WATER THRU GT.
[2021-09-19] MEDS: LORAZEPAM 1 MG TABLET GT PRN (00:42)
[2021-09-19] MEDS: IPRATROPIUM BROMIDE 0.5 MG/2.5 ML NEBU NEB SCH ×4 (01:57→19:26)
[2021-09-19] MEDS: ALBUTEROL SULFATE 2.5 MG/ 0.5 ML NEBU NEB SCH ×4 (01:57→19:26)
[2021-09-19 04:00] VITALS: BP 125/64
[2021-09-19] MEDS: CEFTAZIDIME 2 G in IV DEXTROSE 5% 100 ML IV SCH ×3 (05:10→21:36)
--- NOTE | 2021-09-19 06:42 | NUR ---
PATIENT AWAKE, HOB ELEVATE NO SOB NO CHEST PAIN, ON VENT SAT WNL, PATIENT FEEDING OFF, NO NAUSEA NO VOMITING, RECTAL TUBE DRAINING WITH BROWNISH COLOR FECES IN SMALL AMOUNT, SUPRA PUBIC CATH PATENT DRAINING WELL, PATIENT HAS ABDOMINAL DISTENTION DUE TO ABDOMINAL PER XRAY. PATIENT HAS NO COMPLAIN OF PAIN, PATIENT YELLS WANTED TO EAT AND DRINK, EXPLAINED HE WILL HAVE MEAL IN AM, BUT PATIENT PERSISTENT DESPITE OF EXPLANATION, RENDERED GOOD ORAL CARE, WATER GIVEN VIA GT. CONT TO MONITOR.
[2021-09-19 06:45] LABS: HEMATOCRIT 28.5 % (36.7-47.1); MEAN CORPUSCULAR HEMOGLOBIN 27.4 uug (23.8-33.4); MEAN CORPUSCULAR VOLUME 83.4 fL (73.0-96.2); PLATELET COUNT (AUTO) 378 K/uL (152-348)
[2021-09-19 07:21] LABS: CREATININE 1.2 mg/dL (0.6-1.3); POTASSIUM 3.3 mmol/L (3.5-5.1); VANCOMYCIN,RANDOM 28.3 ug/mL (18.0-26.0)
--- NOTE | 2021-09-19 07:48 | NUR ---
Received report from PM nurse. Arrived to patient awake and alert. Patient's oxygenation received via trach: Portex #7, Peep 5, FiO2 30, TV 300 saturating at 97%. Patient to restart G-Tube feedings at 1400 of Jevity at 40cc/hr. Patient's IV site intact and patent TKO. Will continue to monitor patient throughout shift. Comfort measures provided.
[2021-09-19] MEDS: PROTEIN SUPPLEMENT (PROSTAT) 30 ML LIQUID PO SCH (08:33)
[2021-09-19] MEDS: FERROUS SULFATE 300 MG/5 ML LIQUID UDC GT SCH ×3 (08:33→16:40)
[2021-09-19] MEDS: METOCLOPRAMIDE HCL 5 MG TABLET PO SCH ×3 (08:34→16:40)
[2021-09-19] MEDS: ACETAMINOPHEN 325 MG TABLET PO PRN ×2 (08:34→16:40)
[2021-09-19] MEDS: PANTOPRAZOLE ORAL SUSPENSION 40 MG SUSPDR.PKT GT SCH (08:34)
[2021-09-19] MEDS: BACLOFEN 10 MG TABLET GT SCH ×3 (08:34→16:40)
[2021-09-19] MEDS: MULTIVITAMINS,THERAPEUTIC TABLET GT SCH (08:34)
[2021-09-19] MEDS: REMEDY ESSENTIAL ZINC PASTE 113 GM TOP SCH (08:35)
[2021-09-19] MEDS: CHLORHEXIDINE GLUCONATE 15 ML MOUTHWASH MM SCH ×2 (08:35→16:40)
[2021-09-19] MEDS: ENOXAPARIN SODIUM 40 MG/0.4 ML DISP.SYRIN SQ SCH (08:37)
[2021-09-19] MEDS: SIMETHICONE 80 MG TAB.CHEW GT SCH (08:38)
[2021-09-19 09:06] LABS: A/G RATIO 0.8 (0.7-1.7); ALBUMIN 2.1 g/dL (2.9-4.4); ALPHA-1-GLOBULIN 0.4 g/dL (0.0-0.4); ALPHA-2-GLOBULIN 0.7 g/dL (0.4-1.0); BETA GLOBULIN 0.7 g/dL (0.7-1.3); GLOBULIN, TOTAL 2.8 g/dL (2.2-3.9); M-SPIKE Not Observed g/dL (Not Observed)
[2021-09-19] MEDS ORDERED: POTASSIUM CHLORIDE 20 MEQ POWDER PACKET PO ONE (09:15)
--- NOTE | 2021-09-19 11:16 | NUR ---
Patient seen by speech therapist. Patient tolerated feedings well and placed on mechanical soft diet chopped with respiratory stand by. Order put in for patient's diet. Deflate cuff by 5 cc before feeding, and then to reinflate 5 cc post feeding. Patient to be revaluated tomorrow.
[2021-09-19 12:06] VITALS: BP 146/89
[2021-09-19] MEDS: JEVITY 1.2 1000 ML LIQUID GT PRN (13:21)
[2021-09-19 16:00] VITALS: BP 144/84
--- NOTE | 2021-09-19 18:17 | NUR ---
PATIENT TOLERATING ORAL DIET WITH RT AT BEDSIDE. NO SS OF ASPIRATION OR COUGHING DURING FEEDING.. SR ON MONITOR
[2021-09-19 20:00] VITALS: BP 139/83
[2021-09-19] MEDS: TRAZODONE 100 MG TABLET GT SCH (21:34)
[2021-09-19] MEDS: SENNOSIDES 1 TABLET GT SCH (21:35)
[2021-09-20] VITALS: BP 139/81
[2021-09-20] MEDS ORDERED: FAMOTIDINE. 20 MG/2 ML VIAL IV ONE (00:30)
[2021-09-20] MEDS: ALBUTEROL SULFATE 2.5 MG/ 0.5 ML NEBU NEB SCH ×4 (00:30→19:29)
[2021-09-20] MEDS: IPRATROPIUM BROMIDE 0.5 MG/2.5 ML NEBU NEB SCH ×4 (00:30→19:29)
[2021-09-20] MEDS ORDERED: methylPREDNISolone SOD SUCC 125 MG/2 ML VIAL IV ONE (00:30)
[2021-09-20] MEDS: diphenhydrAMINE 50 MG/1 ML VIAL IV PRN ×2 (00:38→09:53)
--- NOTE | 2021-09-20 00:39 | NUR ---
PATIENT NOTED WITH SWOLLEN LIPS, NO NEW MEDICATION GIVEN, LOOKS ALLERGIC REACTION, NOTIFY JUANA PARRY BAND BUILDER WITH ORDER, BENADRYL 25MG IV, GIVEN ORDERED. CONT TO MONITOR.
[2021-09-20] MEDS: REMEDY ESSENTIAL ZINC PASTE 113 GM TOP SCH ×3 (01:32→20:09)
[2021-09-20 04:00] VITALS: BP 152/82
[2021-09-20] MEDS: CEFTAZIDIME 2 G in IV DEXTROSE 5% 100 ML IV SCH ×3 (05:46→21:01)
[2021-09-20 06:43] LABS: HEMATOCRIT 30.8 % (36.7-47.1); MEAN CORPUSCULAR VOLUME 83.2 fL (73.0-96.2); PLATELET COUNT (AUTO) 372 K/uL (152-348)
[2021-09-20 07:13] LABS: CREATININE 0.9 mg/dL (0.6-1.3); PHOSPHOROUS 3.2 mg/dL (2.5-4.9); POTASSIUM 3.7 mmol/L (3.5-5.1)
[2021-09-20] MEDS ORDERED: CEFT2PIG5 IV (07:36)
[2021-09-20] MEDS ORDERED: LACT-209 GT (07:36)
[2021-09-20] MEDS: PROTEIN SUPPLEMENT (PROSTAT) 30 ML LIQUID PO SCH (09:49)
[2021-09-20] MEDS: FERROUS SULFATE 300 MG/5 ML LIQUID UDC GT SCH ×3 (09:50→16:10)
[2021-09-20] MEDS: ACETAMINOPHEN 325 MG TABLET PO PRN ×2 (09:50→14:35)
[2021-09-20] MEDS: BACLOFEN 10 MG TABLET GT SCH ×3 (09:50→16:10)
[2021-09-20] MEDS: METOCLOPRAMIDE HCL 5 MG TABLET PO SCH ×3 (09:50→16:10)
[2021-09-20] MEDS: MULTIVITAMINS,THERAPEUTIC TABLET GT SCH (09:50)
[2021-09-20] MEDS: SIMETHICONE 80 MG TAB.CHEW GT SCH (09:50)
[2021-09-20] MEDS: PANTOPRAZOLE ORAL SUSPENSION 40 MG SUSPDR.PKT GT SCH (09:51)
[2021-09-20] MEDS: CHLORHEXIDINE GLUCONATE 15 ML MOUTHWASH MM SCH ×2 (09:51→16:10)
[2021-09-20] MEDS: ENOXAPARIN SODIUM 40 MG/0.4 ML DISP.SYRIN SQ SCH (09:52)
--- NOTE | 2021-09-20 10:52 | NUR ---
Late note for 09/15/21 13:04 . Morphine sulfate 1 mg was wasted with Toney Marin/CINDY. Wasted on Pyxis, didn't go through.
[2021-09-20] MEDS ORDERED: POTASSIUM CHLORIDE 20 MEQ POWDER PACKET GT ONE (11:30)
[2021-09-20 12:00] VITALS: BP 144/88
--- NOTE | 2021-09-20 14:20 | NUR ---
Patient's lips still appear to be swollen. Upon further inspection, patient appears to bite on bottom lip. Cuts across patients gums noted. Will endorse information to PM nurse.
[2021-09-20 16:24] VITALS: BP 141/86
--- NOTE | 2021-09-20 19:30 | NUR ---
Received patient lying in bed. AAOx4. In no acute distress. Trach with vent in place. GT feeding on going. PICC line on left upper arm intact and patent. Sinus tachy on tele with HR of 102/min. On continuos pulse oximeter. O2 sat at 97% at this time. Suprapubic catheter intact and draining via gravity. Needs assessed and attended to. Safety measure initiated and call light within reached.
[2021-09-20 20:00] VITALS: BP 131/83
[2021-09-20] MEDS: SENNOSIDES 1 TABLET GT SCH (20:09)
[2021-09-20] MEDS: TRAZODONE 100 MG TABLET GT SCH (20:10)
[2021-09-20] MEDS: HYDROCODONE/APAP 5-325MG TABLET GT PRN (20:51)
[2021-09-21] VITALS: BP 102/55
[2021-09-21] MEDS: IPRATROPIUM BROMIDE 0.5 MG/2.5 ML NEBU NEB SCH ×4 (01:03→20:03)
[2021-09-21] MEDS: ALBUTEROL SULFATE 2.5 MG/ 0.5 ML NEBU NEB SCH ×4 (01:03→20:03)
[2021-09-21 04:00] VITALS: BP 129/77
[2021-09-21] MEDS: CEFTAZIDIME 2 G in IV DEXTROSE 5% 100 ML IV SCH ×3 (05:37→22:03)
--- NOTE | 2021-09-21 06:18 | NUR ---
Patient slept well last night. In no acute distress. Trach with vent in place. GT feeding/flushing well tolerated. PICC line on left upper arm intact and patent. No adverse reaction noted from IV antibiotics. NSR with occasional PVC's on tele with HR of 75/min. On continuos pulse oximeter. O2 sat at 96%. Suprapubic catheter intact and draining via gravity. Needs attended to and met. Safety measure maintained and call light within reached.
[2021-09-21 06:42] LABS: HEMATOCRIT 28.8 % (36.7-47.1); MEAN CORPUSCULAR HEMOGLOBIN 27.5 uug (23.8-33.4); MEAN CORPUSCULAR VOLUME 82.9 fL (73.0-96.2); PLATELET COUNT (AUTO) 333 K/uL (152-348)
[2021-09-21 06:43] LABS: MAGNESIUM 2.1 mg/dL (1.8-2.4); PHOSPHOROUS 2.5 mg/dL (2.5-4.9); POTASSIUM 3.5 mmol/L (3.5-5.1)
[2021-09-21 06:58] LABS: NEUTROPHILS % (MANUAL) 0 % (42-75)
[2021-09-21] MEDS: PROTEIN SUPPLEMENT (PROSTAT) 30 ML LIQUID PO SCH (09:10)
[2021-09-21] MEDS: LORAZEPAM 1 MG TABLET GT PRN (09:11)
[2021-09-21] MEDS: ENOXAPARIN SODIUM 40 MG/0.4 ML DISP.SYRIN SQ SCH (09:11)
[2021-09-21] MEDS: BACLOFEN 10 MG TABLET GT SCH ×3 (09:11→16:54)
[2021-09-21] MEDS: PANTOPRAZOLE ORAL SUSPENSION 40 MG SUSPDR.PKT GT SCH (09:12)
[2021-09-21] MEDS: METOCLOPRAMIDE HCL 5 MG TABLET PO SCH ×3 (09:12→16:54)
[2021-09-21] MEDS: SIMETHICONE 80 MG TAB.CHEW GT SCH (09:12)
[2021-09-21] MEDS: MULTIVITAMINS,THERAPEUTIC TABLET GT SCH (09:12)
[2021-09-21] MEDS: CHLORHEXIDINE GLUCONATE 15 ML MOUTHWASH MM SCH ×2 (09:12→17:12)
[2021-09-21] MEDS: FERROUS SULFATE 300 MG/5 ML LIQUID UDC GT SCH ×3 (09:15→16:54)
[2021-09-21] MEDS: REMEDY ESSENTIAL ZINC PASTE 113 GM TOP SCH ×2 (09:24→22:02)
--- NOTE | 2021-09-21 10:20 | NUR ---
patient requesting a rectal tube to be placed due to loose stool, informed Janice Umanzor NP with new order for cdiff order and to insert rectal tube
[2021-09-21 11:14] VITALS: BP 143/85
[2021-09-21] MEDS: HYDROCODONE/APAP 5-325MG TABLET GT PRN ×2 (12:28→16:54)
[2021-09-21 14:59] VITALS: BP 121/69
[2021-09-21] MEDS ORDERED: MECLIZINE HCL 25 MG TABLET GT PRN (15:15)
--- NOTE | 2021-09-21 17:08 | NUR ---
transfusion complete patient tolerated well. v/s wnl at this time.
--- NOTE | 2021-09-21 17:29 | NUR ---
patient asking to not start gt feeding at this time, per patient turn it on later i am feeling full.
--- NOTE | 2021-09-21 19:30 | NUR ---
AAOx4, Denies any pain or discomfort at this time. Very talkative and friendly. Request to be fed PO around 8pm then requests ambien for insomnia. Will reassess insomnia then. Suprapubic allred catheter draining clear yellow urine. Portex 7 trach, vent support at 10L FIO2 at 30, peep 5, total volume 500, RR 20. PICC to TYRONE intact and patent, TKO. On telemetry, NSR, 94 bpm. HOB elevated. Call light within reach.
[2021-09-21 20:00] VITALS: BP 126/75
[2021-09-21] MEDS: ZOLPIDEM 5 MG TABLET GT PRN (20:58)
[2021-09-21] MEDS: TRAZODONE 100 MG TABLET GT SCH (21:52)
[2021-09-21] MEDS: SENNOSIDES 1 TABLET GT SCH (22:02)
[2021-09-21] MEDS: MORPHINE SULFATE 2 MG/1 ML DISP.SYRIN IV PRN (22:03)
--- NOTE | 2021-09-21 23:00 | NUR ---
Patient states he is too full from his dinner and request feeding turn off otherwise he will not feel well. Feeding placed on hold at this time.
[2021-09-22] VITALS: BP 114/71
[2021-09-22] MEDS: LORAZEPAM 1 MG TABLET GT PRN ×3 (00:06→13:03)
[2021-09-22] MEDS: HYDROCODONE/APAP 5-325MG TABLET GT PRN ×3 (00:06→16:17)
[2021-09-22] MEDS: IPRATROPIUM BROMIDE 0.5 MG/2.5 ML NEBU NEB SCH ×3 (01:12→13:42)
[2021-09-22] MEDS: ALBUTEROL SULFATE 2.5 MG/ 0.5 ML NEBU NEB SCH ×3 (01:12→13:42)
[2021-09-22] MEDS: ACETAMINOPHEN 325 MG TABLET PO PRN (05:21)
[2021-09-22] MEDS: CEFTAZIDIME 2 G in IV DEXTROSE 5% 100 ML IV SCH ×2 (05:21→13:07)
--- NOTE | 2021-09-22 06:09 | NUR ---
Patient noted with multiple episodes of pain and anxiety. Patient is verbal, AAO x4 and bale to request specific medication for ailments. Medication effective, patient able to sleep about 3-4 hours without interruption. per patient he has muscle spasm on thighs. Ice provided with help. Ventilator settings remain unchanged, 02 sats 97%. Telemetry is NSR, 69 bpm. All needs attended.
[2021-09-22 08:46] LABS: HEMATOCRIT 29.7 % (36.7-47.1); MEAN CORPUSCULAR HEMOGLOBIN 26.9 uug (23.8-33.4); MEAN CORPUSCULAR VOLUME 83.4 fL (73.0-96.2); PLATELET COUNT (AUTO) 262 K/uL (152-348)
[2021-09-22 08:55] LABS: NEUTROPHILS % (MANUAL) 0 % (42-75)
[2021-09-22] MEDS: PROTEIN SUPPLEMENT (PROSTAT) 30 ML LIQUID PO SCH (08:57)
[2021-09-22] MEDS: SIMETHICONE 80 MG TAB.CHEW GT SCH (08:58)
[2021-09-22] MEDS: MULTIVITAMINS,THERAPEUTIC TABLET GT SCH (08:58)
[2021-09-22] MEDS: BACLOFEN 10 MG TABLET GT SCH ×3 (08:58→16:06)
[2021-09-22] MEDS: FERROUS SULFATE 300 MG/5 ML LIQUID UDC GT SCH ×3 (08:58→16:06)
[2021-09-22] MEDS: PANTOPRAZOLE ORAL SUSPENSION 40 MG SUSPDR.PKT GT SCH (08:58)
[2021-09-22] MEDS: METOCLOPRAMIDE HCL 5 MG TABLET PO SCH ×3 (08:58→16:06)
[2021-09-22] MEDS: REMEDY ESSENTIAL ZINC PASTE 113 GM TOP SCH (08:59)
[2021-09-22 09:00] LABS: CREATININE 0.9 mg/dL (0.6-1.3); MAGNESIUM 1.8 mg/dL (1.8-2.4); PHOSPHOROUS 2.1 mg/dL (2.5-4.9); POTASSIUM 3.3 mmol/L (3.5-5.1)
[2021-09-22] MEDS: CHLORHEXIDINE GLUCONATE 15 ML MOUTHWASH MM SCH ×2 (09:13→16:07)
[2021-09-22] MEDS: ENOXAPARIN SODIUM 40 MG/0.4 ML DISP.SYRIN SQ SCH (09:13)
--- NOTE | 2021-09-22 11:25 | NUR ---
Pt is a/o x 4, able to communicate needs. No residual volume aspirated from G tube. Pt has trach and ventilator, saturating at 98-100% Oral care done Q2H, pt tolerating feeding well today. PO tolerated as well. Family at bedside. Comfort measures provided, call light within reach. Will continue to monitor. Pending discharge plan back to [facility].
[2021-09-22] MEDS ORDERED: CEFT2PIG5 IV (11:49)
[2021-09-22] MEDS ORDERED: POTASSIUM CHLORIDE 20 MEQ POWDER PACKET GT ONE (12:00)
[2021-09-22 12:39] VITALS: BP 126/76
[2021-09-22] MEDS ORDERED: NEUTRA PHOS PACKET GT ONE (16:00)
[2021-09-22 16:55] VITALS: BP 149/62
--- NOTE | 2021-09-22 19:22 | NUR ---
pt is discharged back to [facility]. Picked up by [facility]. Pt going to be admitted to bed 19C. Continuing IV antibiotics. Report has been called to Nurse Neal at 1700. All personal belongings at hand. Discharge information and continuity of care in folder transferred with pt. No acute distress. Picc line left inserted for transfer.
== END 2021-09-22 19:05 | DRG 720 ==
LOC: ER 21:51 → CCU 09-14 03:46 → TELE3 09-17 15:55
PROVIDERS: ADMIT Nurse Practitioner Acute Care; ATTEND Nurse Practitioner Acute Care
PROC: 5A1955Z Respiratory Ventilation, Greater than 96 Consecutive Hours (ICD-10-PCS; principal; 2021-09-14)
PROC: 02HV33Z Insertion of Infusion Device into Superior Vena Cava, Percutaneous Approach (ICD-10-PCS; 2021-09-15)
PROC: B548ZZA Ultrasonography of Superior Vena Cava, Guidance (ICD-10-PCS; 2021-09-15)
PROC: 30243N1 Transfusion of Nonautologous Red Blood Cells into Central Vein, Percutaneous Approach (ICD-10-PCS; 2021-09-17)
DX: A41.9 Sepsis, unspecified organism (principal); N17.0 Acute kidney failure with tubular necrosis; J96.21 Acute and chronic respiratory failure with hypoxia; R65.21 Severe sepsis with septic shock; E44.0 Moderate protein-calorie malnutrition; R53.2 Functional quadriplegia; J15.9 Unspecified bacterial pneumonia; D68.59 Other primary thrombophilia; K56.7 Ileus, unspecified; E88.09 Other disorders of plasma-protein metabolism, not elsewhere classified; D63.8 Anemia in other chronic diseases classified elsewhere; N39.0 Urinary tract infection, site not specified; E78.5 Hyperlipidemia, unspecified; E87.6 Hypokalemia; J96.22 Acute and chronic respiratory failure with hypercapnia; J98.11 Atelectasis; K21.9 Gastro-esophageal reflux disease without esophagitis; Z87.442 Personal history of urinary calculi; Z93.59 Other cystostomy status; Z93.1 Gastrostomy status; Z99.11 Dependence on respirator [ventilator] status; R13.10 Dysphagia, unspecified; Z68.21 Body mass index [BMI] 21.0-21.9, adult; L89.616 Pressure-induced deep tissue damage of right heel; W34.00XS Accidental discharge from unspecified firearms or gun, sequela; Z74.01 Bed confinement status; G89.4 Chronic pain syndrome; F15.11 Other stimulant abuse, in remission; N31.9 Neuromuscular dysfunction of bladder, unspecified; G93.1 Anoxic brain damage, not elsewhere classified; N18.9 Chronic kidney disease, unspecified; Z93.0 Tracheostomy status
CPT/HCPCS: 36415; 36600; 70030-TC; 71045; 74018; 76770; 83605; 83735; 83970; 84100; 84155; 84156; 84165; 84300; 85025; 85730; 86850; 86900; 86901; 86920; 87040; 87070; 87077; 87086; 93005; 94002; 94003; 94640; 94664; 94760; 99082-TC; A4217; A4663; A6209; G0378; J0456; J0713; J1200; J1650; J1720; J2270; J2405; J2543; J2930; J3370; J3475; J3480; J3490; J3590; J7030; J7050; J7060; J8597; P9016; Q9963